=== PATIENT | female | born 1995 | race Caucasian/White ===

== ENCOUNTER 2024-12-17 09:33 | Outpatient (AMB) | payer BC, SELFPAY ==
[2024-12-17 09:40] VITALS: BP 132/95; PULSE 86; RESP 16; TEMP 36.8; O2SAT 98; BMI 37.4
--- NOTE | 2024-12-17 09:40 | AMB.GYNCLNOT ---
Vital Signs 12/17/24 09:40 Height 1.6 m Height Method Stated Weight 95.935 kg Weight Measurement Method Standing Scale BMI 37.4 BP 132/95 H Blood Pressure Source Automatic Cuff Blood Pressure Location Left Upper Arm Position Sitting Respiration 16 Pulse 86 Pulse Source Monitor Temp 98.2 F Temp Source Oral Pulse Oximetry (%) 98 Oxygen Delivery Method Room Air Allergies/Home Meds Allergies & Medications Allergies No Known Allergies Allergy (Verified 12/17/24 09:41) Medication Reconciliation No Known Home Medications 12/17/24 [History Confirmed 12/17/24] Intake Visit Data Collection New Patient or Established: New Patient (never been to [facility]) Consent obtained for Telemed Visit: No Seen by Clinical Staff ONLY (RN/MA): No Bus Driver School Required: No Do You Feel Safe at Home: Yes Authorities Contacted: N/A PCP or OBGYN visit in last 3 months: Yes Hx Now: No Are you currently on any form of Control: No Pain Present Currently: No Pain Scale Used: Prater-Ma/Numerical Pain scale:: 0 Smoking Status Smoking Status: Never smoker 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 1. Little interest or pleasure in doing things: not at all 2. Feeling down, depressed, or hopeless: not at all Total score: 0 Depression screen completed yes Social History Living Situation History Marital Status: Lives With: Family Housing: House Tobacco History Smoking Status: Never smoker Alcohol History Alcohol Intake: Never Domestic Abuse History Do You Feel Safe at Home: Yes Past Medical History Past Medical History Have you ever been diagnosed with any of the following: History of Present Illness Weight: 95.708 kg Sexual Activity Sexual activity counseling done: Yes Dyspareunia: No Change in libido: No Emergency contraception: declined Control control method(s) used: undecided Bonding With Infant Problem identified: No Problem identified: No Referral for counseling: No Tobacco Smoking Status: Never smoker Review of Systems Genitourinary Genitourinary: Denies change in libido Psychiatric Psychiatric: Denies change in libido Endocrine Endocrine: Denies change in libido Assessment & Plan Diagnosis / Problem List (1) Routine Follow-Up:
--- NOTE | 2024-12-17 09:49 | AMB.GYNCLNOT ---
Vital Signs 12/17/24 09:40 Height 1.6 m Height Method Stated Weight 95.935 kg Weight Measurement Method Standing Scale BMI 37.4 BP 132/95 H Blood Pressure Source Automatic Cuff Blood Pressure Location Left Upper Arm Position Sitting Respiration 16 Pulse 86 Pulse Source Monitor Temp 98.2 F Temp Source Oral Pulse Oximetry (%) 98 Oxygen Delivery Method Room Air Allergies/Home Meds Allergies & Medications Allergies No Known Allergies Allergy (Verified 12/17/24 10:05) Medication Reconciliation sertraline 25 mg tablet (Zoloft) 25 mg PO QDAY #90 tabs 12/17/24 [Rx] Intake Visit Data Collection New Patient or Established: New Patient (never been to [facility]) Reason for Visit:: Post check Consent obtained for Telemed Visit: No Seen by Clinical Staff ONLY (RN/MA): No Commissioning Editor Required: No Do You Feel Safe at Home: Yes Authorities Contacted: N/A PCP or OBGYN visit in last 3 months: Yes Hx Now: No Are you currently on any form of Control: No Pain Present Currently: No Pain Scale Used: Prater-Ma/Numerical Smoking Status Smoking Status: Never smoker 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 1. Little interest or pleasure in doing things: not at all 2. 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 Tobacco History Smoking Status: Never smoker Alcohol History Alcohol Intake: Never Domestic Abuse History Do You Feel Safe at Home: Yes Past Medical History Past Medical History Have you ever been diagnosed with any of the following: Neurological Problems Seizures: No Migraine: No Cardiology Problems Cardiac Arrhythmia: No Heart Murmur: No Hypercholesterolemia: No Deep Vein Thrombosis: No Hypertension: Yes (Patient had severe preeclampsia with her last and high BP) Respiratory Problems Asthma: No Pulmonary Edema: No Sleep Apnea: No Stomache/Intestinal Problems Gall Bladder Disease: No Gastroesophageal Reflux Disease: No Genital/Urinary Problems Kidney Stones: No Reproductive Problems Breast Cancer: No Endometriosis: No Fibroids: No Genital Herpes: No Gonorrhea: No Pelvic Inflammatory Disease: No Polycystic Ovarian Syndrome: No Previous Pregnancies: Yes ( x 4, CS x 1) Musculoskeletal Problems Arthritis: No Rheumatoid Arthritis: No Endocrine Problems Diabetes Mellitus Type 2: No Hyperthyroidism: No Hypothyroidism: No Blood Problems Anemia: No Clotting Problems: No Psychologic Problems Anxiety: Yes Depression: Yes Other Problems Hospitalization: Yes (For childbirth x 5) Autoimmune Disease: No Surgical History Appendectomy: No Bariatric Surgery: No Additional Surgical History: x 1, LEEP in the past History of Present Illness HPI Narrative Patient is a 29-year-old -1-0-5 history of vaginal delivery x 4 in the past. She was my patient in [place]. She transferred her doctor her care to another doctor in [place] when our office closed and stated she was not able to be seen utill 27 weeks. By the time she was seen she had elevated blood pressures. Patient was in triage multiple times and ended up getting admitted for severe preeclampsia. She ended up having a at 30 weeks due to the fact her blood pressures were very difficult to control with IV medication. Patient is crying in the office today she is quite upset about her care. She feels like her complaints of not feeling well and the fact that her blood pressure was elevated in the office several times were not taken seriously. Her baby is still in the nursery. His name is Walker and he is 7 weeks old. Her due date was supposed to be January 01, 2025 the baby delivered by October 29, 2024. Patient was supposed to refill her Procardia. She was on 60 mg p.o. daily and has not refilled this yet. Her blood pressure is a little bit elevated today Pain Assessment Are you having any pain?: No Pain scale (0-10): 0 Weight: 95.708 kg Pre- Weight: 97.522 kg Sexual Activity Sexual activity counseling done: Yes Resumed intercourse: Yes Dyspareunia: No Change in libido: No Emergency contraception: declined Control control method(s) used: condoms and male sterilization Received Tdap: Yes Menses resumed: No Diet Number of meals per day: 2 Is taking folic acid supplementation: No Eats food rich in folic acid: Yes Parenting Problem identified: No Education done: adjustment to parenting Bonding With Infant Bonding with infant: yes Problem identified: No Depression and anxiety: anxiety Infant Feeding Feeding method: breast Tobacco Smoking Status: Never smoker Alcohol Alcohol: does not drink Drugs/Substances Substances: denies use Return of menses: No Is last menstrual period known: Yes : 5 Parity: 5 Resuming intercourse: Yes control method: other Name of baby: Jaden Gender: male Date of delivery: 10/29/24 Route of delivery: section Delivering provider: Dr. Rice Order: hare Delivery outcome: liveborn Other delivery details: Emergency at 30 weeks secondary to severe preeclampsia Interim details: no feeding problems Interim complaints: depression/mood concerns [place] concerns: none Review of Systems Constitutional Constitutional: Reports system reviewed and no additional complaints, except as documented Comments: Patient is crying and upset today. She is very anxious. She appears very tired. Her baby is still in the NICU. Patient denies headaches changes in vision. She would like to go on Zoloft for anxiety. Genitourinary Genitourinary: Denies change in libido Psychiatric Psychiatric: Denies change in libido Endocrine Endocrine: Denies change in libido Exam General Limitations: no limitations General Appearance: alert, cooperative, anxious and other (Patient appears very tired and tearful) Neck Neck exam: Present normal inspection, full ROM and trachea midline Chest Chest inspection: Present normal inspection and symmetric chest wall rise Resp Respiratory exam: Present normal lung sounds bilaterally Card Cardiovascular exam: Present regular rate, normal rhythm and normal heart sounds Abdominal Abdominal exam: Present soft, normal bowel sounds and scar (Pfannenstiel scar well-healed.) Extremities Extremities exam: Present normal inspection and full ROM Skin Skin exam: Present warm, dry, intact and normal color Assessment & Plan Diagnosis / Problem List (1) Routine Follow-Up: (2) anxiety: Status: Acute Plan: Start Zoloft 25 mg p.o. daily. Consider counseling. (3) Severe pre-eclampsia affecting fifth : Status: Acute Plan: Low-salt diet, moderate weight loss. Moderate exercise. Refill Procardia 60 mg p.o. daily. (4) delivery due to maternal disorder: Status: Acute Plan: Continue to check blood pressures at home. Plan Patient's will pursue vasectomy. Condoms for contraception at this time. control pills were discouraged. Patient declines IUD. Additional Plan Follow Up: 4 Weeks (Follow-up in 4 weeks to check on anxiety and blood pressure.) Office Procedures OB Clinic LOC & Office Proc's Nursing/Assessment Patient Status: Initial/New Patient OB Clinic Nursing Assessment: BP Monitoring, Medication Reconciliation, Update PMH in EMR and Vital Signs OB Clinic Coordination of Care: Consent,records obtained, informed consent, Education Simp Pt/Fam and Staff clarify orders New Patient Charge New Patient Point Assignment: [id number] New Patient Point Charge: NURSES AIDE Level 3 ([id number])
== END 2024-12-17 10:35 | disposition home or self-care (01) ==
LOC: HODSOBC 09:33
PROVIDERS: Supervising Provider Obstetrics & Gynecology; Visit Provider Obstetrics & Gynecology
DX: Z39.2 Encounter for routine postpartum follow-up (principal); O99.345 Other mental disorders complicating the puerperium
CPT/HCPCS: 99203; G0463